=== PATIENT | female | born 1985 | race Caucasian/White ===

== ENCOUNTER 2022-02-13 07:51 | Inpatient (IN) ==
[2022-02-13] MEDS ORDERED: LIDOCAINE 1% LOCAL 20 ML VIAL INFIL PRN (08:03)
[2022-02-13] MEDS ORDERED: OXYTOCIN 30 UNITS/500 ML BAG IV PRN ×3 (08:03→18:50)
--- NOTE | 2022-02-13 08:03 | History & Physical Report ---
Date of Service February 13, 2022 Assessment & Plan (1) Encounter for induction of labor: Plan: Admit to L&D for IOL. Plan for Pitocin and Mclaughlin bulb. Epidural as desired. (2) Preeclampsia: Plan: Will check CBC and CMP. Continue to trend blood pressures. Admission and Anticipated Discharge Date Admission Date: February 13, 2022 History of Present Illness Chief Complaint: IOL Primary Care Provider: Xu Schmidt DO Olivia is a 36 y/o female currently at 37 3/7 WGA with an RICH 03/03/22 as determined by LMP who is here for induction. Her was complicated by preeclampsia. Irregular contractions; + movement; no fluid loss; no bloody show External FHT and external uterine monitors used; Category 1 tracing; moderate FHT variability. Had regular appointments with OB. Labs: (07/25/21) Blood type: O+ Antibody screen: Neg Hg: pending (today) Hct:pending (today) WBC: pending(today) Plt: pending(today) Rubella: Non-immune VDRL/RPR: Neg Gonorrhea: Neg Chlamydia: Neg HIV: Neg HbSAg: Neg GBS: neg Other screens: Declines cf/sma--mln cfdna-low risk--mln Allergies Allergy/AdvReac Type Severity Reaction Status Date / Time No Known Allergies Allergy NONE Verified 02/12/22 13:20 Home Medications Medication Instructions Recorded Confirmed Type prenat.vits,vikki,wfy-qsxu-fvuyb 1 tab PO DAILY 07/17/21 02/13/22 History breast pump #1 ea 11/11/21 02/13/22 Rx Patient History Medical History (Updated 02/13/22 @ 08:31 by Yoana Woodruff DO) Lyme disease (~01/08/16) Surgical History S/P dilation and curettage polypectomy S/P tonsillectomy Family History Mother Breast cancer Hypertension Thyroid disease Social History (Updated 02/05/22 @ 11:21 by Bhavana Andre RN) Smoking Status: Former smoker Cigarettes Per Day: 20; Smoking End Date: 10/2021; Second Hand Exposure: No; Hx Alcohol Use: No Hx Substance Use: No Preferred Language: Latvian Communication Ability: Effective Visual Impairment: No Limitations Hearing Ability: Normal Music Educator Required: No Beliefs That Will Affect Care: None marital status: Single marital status details: Matti(38) [phone] Current Living Situation: Significant Other Current Living Situation Comment: lives with fob, 4 dogs, 3 cats, fob to change litter current occupational status: employed 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 Other Information That Helps Us Care for You: No Feels Safe at Home: Yes Safety Concerns: Feels Safe At This Time Childhood Exposure to Second-Hand Smoke: No Gender Identity: Female Assistive Devices: Contacts Review of Systems Denies fever, chills, sweats Denies shortness of breath, difficulty breathing, chest pain, palpitations, chest pressure. Denies breast pain. Denies dysuria. Denies headache or changes in vision. Physical Exam Physical Exam: General: Alert, oriented. No acute distress. Cardiac: Regular rate and rhythm, no murmurs/rubs/gallops. Respiratory: Clear to auscultation bilaterally a/p, no wheezes/rales/rhonchi. No increased work of breathing. Symmetrical chest rise. No respiratory distress. Abdomen: Gravid, no RUQ tenderness Pelvic: Dilation 1 cm; Effacement 90; Station -[address] Abreu Lower Extremities: No lower extremity edema or swelling. No deep calf pain. Lynne's negative bilaterally Neuro: no clonus, DTRs +2 Supervising Physician Co-Signing Physician Notes Resident Physician Supervision Note: I was present with Dr. Woodruff during the history and exam. I discussed the case with the resident and agree with the findings and plan as documented in the note. Any exceptions or clarifications are listed here: at 37wks with mild preeclampsia for induction. fhts categ 1. sve /-2 soft mid. PROCEDURE: sse cx visualized, grasped on ant lip with ring forcep, mclaughlin through os and balloon inflated with 40cc sterile water. Spec removed, mclaughlin taped to leg. pt adan well. will start pitocin as well. pt agreeable. no significant additional sx, has had on and off adams. plan arom when avail. Documented By: Jenise Abreu MD, FACOG
[2022-02-13 08:39] LABS: Hematocrit (blood only) 33.7 % (34.1-44.9); Hemoglobin 12.2 g/dl (12.0-16.0); Mean Corpuscular Hemoglobin 31.9 pg (25.0-34.0); Mean Corpuscular Hgb Conc 36.2 g/dL (32.0-36.0); Mean Corpuscular Volume 88.2 fL (80.0-100.0); Mean Platelet Volume 10.4 fL (9.4-12.3); Platelet Count 259 K/uL (130-400); RDW Standard Deviation 41.8 fL (36.4-46.3); Red Blood Count 3.82 M/uL (3.93-5.22); White Blood Count 8.62 K/ul (4.8-10.8)
[2022-02-13 09:11] LABS: Alanine Aminotransferase 9 U/L (7-52); Albumin Level 3.1 gm/dl (3.4-5.0); Alkaline Phosphatase 142 U/L (34-104); Anion Gap 7 (3-11); Aspartate Aminotransferase 12 U/L (13-39); BUN Creatinine Ratio 13.2 (10-20); Bilirubin,Total 0.3 mg/dl (0.2-1.0); Blood Urea Nitrogen 9 mg/dl (6-23); Carbon Dioxide 25 mmol/L (21-32); Chloride 103 mmol/L (98-107); Est GFR (African American) 129.5 ml/min; Est GFR (Non-African American) 111.7 ml/min; Globulin 3.1 gm/dl (2.5-4.0); Potassium 3.9 mmol/L (3.5-5.1); Sodium 135 mmol/L (136-145); Total Protein 6.2 gm/dl (6.0-8.3)
[2022-02-13] MEDS: LACTATED RINGER'S 1,000 ML IV PRN ×2 (09:48→14:11)
[2022-02-13 10:12] LABS: Glucose 75 mg/dl (70-99(Fasting))
[2022-02-13] MEDS ORDERED: BUTORPHANOL TARTRATE 1 MG/ML VIAL IV STA (10:35)
--- NOTE | 2022-02-13 13:25 | Labor Progress Brief Note ---
Date of Service February 13, 2022 Subjective feeling pressure in rectum Assessment & Plan (1) Encounter for induction of labor: (2) Preeclampsia: Plan good cx change. labor pattern and pt desires epidural. fhts categ 1. Admission and Anticipated Discharge Date Admission Date: February 13, 2022 Physical Exam 2 Constitutional: WD/WN, vitals as above Genitourinary: Manual OB Exam: + cervical dilation 4 cm, + cervical effacement 90%, + station -1 and + amniotic fluid (arom ) clear OB Exam Monitor Tracing: + external FHT monitor used, + external uterine monitor used (q2 pit at 11), + category I and + normal FHT variability mclaughlin in vagina, deflated and removed. Results & Data ([facility]) Vital Signs (Past 12 Hours) Vital Signs Temp Pulse Resp BP O2 Del Method 02/13/22 08:00 98.1 F 73 18 141/87 H Room Air 02/13/22 12:39 76 02/13/22 12:39 122/72 02/13/22 11:40 64 02/13/22 11:40 140/64 02/13/22 11:32 18 02/13/22 11:32 98.1 F 18 02/13/22 11:32 69 02/13/22 11:32 139/63 02/13/22 10:48 64 02/13/22 10:48 138/69 02/13/22 10:38 67 02/13/22 10:38 146/74 H 02/13/22 07:59 73 141/87 H Coding Level of Care Code None Diagnoses Encounter for induction of labor Z34.90 Preeclampsia O14.90 CPT Codes Misx Procedure Codes - 42774 Placement of cervical dilator: 24054 Placement of cervical dilator ([id number]) DELIVERY DRIVER/CUSTOMER SERVICE Miscellaneous Codes Misx Procedure Codes 58887 Placement of cervical dilator (done earlier and forgot to submit billing)
[2022-02-13] MEDS ORDERED: ePHEDrine sulfate 50 MG/ML AMP ONE (13:32)
[2022-02-13] MEDS ORDERED: fentaNYL citrate 100 MCG/2 ML VIAL ONE ×2 (13:32→17:53)
[2022-02-13] MEDS ORDERED: SODIUM CHLORIDE 0.9% INJ 10 ML VIAL ONE (13:33)
[2022-02-13] MEDS ORDERED: LIDOCAINE 2%/EPINEPHRINE 1:200,000 20 ML SDV ONE ×2 (13:33→14:04)
[2022-02-13] MEDS ORDERED: BUPIVACAINE 0.25% 30 ML VIAL ONE ×2 (13:33→14:02)
[2022-02-13] MEDS ORDERED: fentaNYL 2MCG/ML ROPIVACAINE 1.25MG/ML 100 ML BAG EPI ONE (13:34)
--- NOTE | 2022-02-13 14:29 | Anesthesiology Consultation ---
Date of Service February 13, 2022 Assessment & Plan Chart Review Chart Review: Acceptable Risk for Labor Epidural Consults Requested none History Height/Weight Height: 5 ft 4 in Weight: 92.261 kg Allergies Allergy/AdvReac Type Severity Reaction Status Date / Time No Known Allergies Allergy NONE Verified 02/12/22 13:20 Medications Home Medications Medication Instructions Recorded Confirmed Last Taken prenat.vits,vikki,ggk-oupl-wilbw 1 tab PO DAILY 07/17/21 02/13/22 02/13/22 07:00 breast pump #1 ea 11/11/21 02/13/22 Unknown Active Medications Generic Name Dose Route Start Last Admin Trade Name Freq PRN Reason Stop Dose Admin Oxytocin 30 units in 500 mls @ 11 mls/hr 02/13/22 08:03 02/13/22 13:00 Pitocin IV 02/15/22 08:02 0.66 units/hr .Q24H PRN 11 mls/hr Labor Induction/Augmentation Titration Protocol 0.66 UNITS/HR Lactated Ringer's 1,000 mls @ 125 mls/hr 02/13/22 08:03 02/13/22 14:11 Lr IV 02/15/22 08:02 Infused .Q8H PRN Infusion L&D Protocol Protocol Past Medical History Medical History (Updated 02/13/22 @ 08:31 by Yoana Woodruff DO) Lyme disease (~01/08/16) Past Family History Family History Mother Breast cancer Hypertension Thyroid disease Past Surgical History Surgical History S/P dilation and curettage polypectomy S/P tonsillectomy Social History Smoking Status: Former smoker tobacco type: cigarettes Smoking cigarettes per day: 20 Smoking End Date: 10/2021 Hx Alcohol Use: No Hx Substance Use: No substance use type: does not use Physical Exam Vital Signs Last Vital Signs Temp 36.8 C 02/13/22 13:22 Pulse 79 02/13/22 14:23 Resp 18 02/13/22 11:32 BP 125/66 02/13/22 14:23 Pulse Ox 99 02/13/22 14:23 O2 Del Method 02/13/22 08:00 Testing Laboratory Results 02/13/22 08:26 10/28/22 08:26
[2022-02-13] MEDS ORDERED: ONDANSETRON INJ 2 MG/ML 2 ML VIAL IV PRN (14:30)
[2022-02-13] MEDS ORDERED: diphenhydrAMINE 50 MG/ML VIAL IV PRN (14:30)
[2022-02-13] MEDS ORDERED: NALOXONE HCL 1 MG in SODIUM CHLORIDE 0.9% 1000ML 1,000 ML IV PRN (14:30)
[2022-02-13] MEDS ORDERED: NALBUPHINE HCL INJ 10 MG/ML AMP IV PRN (14:30)
[2022-02-13] MEDS ORDERED: fentaNYL 2MCG/ML ROPIVACAINE 1.25MG/ML 100 ML BAG EPI PRN (14:30)
[2022-02-13] MEDS ORDERED: ePHEDrine sulfate 50 MG/ML AMP IV PRN (14:30)
[2022-02-13] MEDS ORDERED: NALOXONE HCL 0.4 MG/1 ML VIAL/CARP IV PRN (14:30)
--- NOTE | 2022-02-13 18:47 | Delivery Summary ---
Vaginal Delivery Summary Date of Service February 13, 2022 Vaginal Delivery Summary and 2nd Degree LAC The patient dilated to complete and pushed to deliver a viable male infant Apgars 8 and 9 via over 2nd degree perineal laceration. Mouth and nose bulb suctioned at perineum. Shoulders and body delivered with ease. Infant was vigorous and crying at . Cord clamped at 30 seconds of life and infant to maternal abdomen where the cord was then doubly clamped and cut. Placenta delivered spontaneously and intact, three-vessel cord. Hemostasis achieved with dilute pitocin and uterine massage and drainage of the bladder for approximately 200 cc under sterile conditions. Laceration repaired in routine fashion with 3- 0 vicryl. Cervix and sulci intact. EBL 300 cc. Mother and baby stable in recovery. [facility] [place] Vaginal Delivery Charge Delivery Type Details: and 2nd Degree LAC
[2022-02-13] MEDS ORDERED: DIPHTHERIA/TETANUS/PERTUSSIS 0.5 ML SYR/VIAL IM ONE (18:50)
[2022-02-13] MEDS ORDERED: HYDROCORTISONE ACETATE 25 MG SUPP PR PRN (18:50)
[2022-02-13] MEDS ORDERED: ACETAMINOPHEN 325 MG TAB PO PRN (18:50)
[2022-02-13] MEDS ORDERED: BENZOCAINE 20% AER SPR 82.5 GM CAN EXT PRN (18:50)
[2022-02-13] MEDS ORDERED: oxyCODONE/ACETAMINOPHEN 5mg/325mg TAB PO PRN (18:50)
[2022-02-13] MEDS ORDERED: CALCIUM CARBONATE 500 MG CHEWABLE TAB PO PRN (18:57)
[2022-02-13] MEDS ORDERED: OXYTOCIN 20 UNITS in LACTATED RINGER'S 1,000 ML IV SCH (19:15)
[2022-02-13] MEDS ORDERED: MEASLES, MUMPS & RUBELLA VIRUS VIAL SQ ONE (21:00)
[2022-02-14] MEDS: DOCUSATE SODIUM 100 MG CAP PO SCH ×3 (01:49→20:38)
[2022-02-14] MEDS: IBUPROFEN 600 MG TAB PO PRN ×2 (01:50→12:03)
--- NOTE | 2022-02-14 06:04 | Obstetrical Progress Note ---
Date of Service February 14, 2022 Assessment & Plan (1) Vaginal delivery: (2) Preeclampsia: Plan stable, routine care. breast, rh pos, mmr ordered. bps are reasonable. denies any concerning sx. Day #:: 1 Subjective Ambulation: ambulating normally Voiding: no voiding problems Diet Tolerance:: regular diet Lochia:: Small Feeding Type:: breast feeding denies pain issues. trying to get habit of nursing, used breast shield. Constitutional: + as per Subjective / HPI Physical Exam Constitutional WD/WN, vitals as above Respiratory normal respiratory effort, lungs clear to auscultation Cardiovascular Rate/Rhythm: regular rate and regular rhythm Gastrointestinal (Abdomen) Inspection/Auscultation: abdomen normal to inspection Percussion/Palpation: abdomen soft Fundus firm 2cm down Musculoskeletal nt calves Tr edema Neurologic grossly normal Psychiatric A+Ox3, euthymic affect Results & Data ([facility]) Vital Signs (Past 12 Hours) Vital Signs Temp Pulse Pulse Resp BP BP Pulse Ox 02/14/22 02:00 99.1 F 90 18 148/78 H 97 02/13/22 22:00 99.1 F 95 H 18 141/83 H 98 02/13/22 19:40 99.5 F 02/13/22 18:40 98.7 F 02/13/22 21:22 94 H 02/13/22 21:22 149/65 H 02/13/22 21:08 105 H 02/13/22 21:08 170/78 H 02/13/22 20:52 114 H 02/13/22 20:52 146/63 H 02/13/22 20:37 93 H 02/13/22 20:37 141/64 H 02/13/22 20:22 103 H 02/13/22 20:22 139/61 02/13/22 20:07 87 02/13/22 20:07 148/71 H 02/13/22 19:52 80 02/13/22 19:52 154/72 H 02/13/22 19:37 95 H 02/13/22 19:37 152/70 H 02/13/22 19:22 91 H 02/13/22 19:22 164/68 H 02/13/22 19:07 90 02/13/22 19:07 150/70 H 02/13/22 18:52 102 H 02/13/22 18:52 139/76 02/13/22 18:40 94 H 02/13/22 18:40 137/70 02/13/22 18:33 99 02/13/22 18:33 92 H 02/13/22 18:28 87 L 02/13/22 18:28 122 H 02/13/22 18:24 89 L 02/13/22 18:24 114 H 02/13/22 18:23 99 02/13/22 18:23 95 H 02/13/22 18:22 101 H 02/13/22 18:22 141/62 H 02/13/22 18:18 87 L 02/13/22 18:18 104 H 02/13/22 18:13 100 02/13/22 18:13 92 H 02/13/22 18:08 100 02/13/22 18:08 97 H 02/13/22 18:08 139/67 02/13/22 18:03 99 02/13/22 18:03 84 O2 Del Method 02/14/22 02:00 Room Air 02/13/22 22:00 Room Air 02/13/22 19:40 02/13/22 18:40 02/13/22 21:22 02/13/22 21:22 02/13/22 21:08 02/13/22 21:08 02/13/22 20:52 02/13/22 20:52 02/13/22 20:37 02/13/22 20:37 02/13/22 20:22 02/13/22 20:22 02/13/22 20:07 02/13/22 20:07 02/13/22 19:52 02/13/22 19:52 02/13/22 19:37 02/13/22 19:37 02/13/22 19:22 02/13/22 19:22 02/13/22 19:07 02/13/22 19:07 02/13/22 18:52 02/13/22 18:52 02/13/22 18:40 02/13/22 18:40 02/13/22 18:33 02/13/22 18:33 02/13/22 18:28 02/13/22 18:28 02/13/22 18:24 02/13/22 18:24 02/13/22 18:23 02/13/22 18:23 02/13/22 18:22 02/13/22 18:22 02/13/22 18:18 02/13/22 18:18 02/13/22 18:13 02/13/22 18:13 02/13/22 18:08 02/13/22 18:08 02/13/22 18:08 02/13/22 18:03 02/13/22 18:03
[2022-02-14] MEDS: PRENATAL VITAMIN 1 TAB PO SCH (07:48)
--- NOTE | 2022-02-15 08:35 | Obstetrical Progress Note ---
Date of Service February 15, 2022 Assessment & Plan (1) Vaginal delivery: day #1 patient is doing well she is somewhat sleep deprived her blood pressures are borderline they are not at the treatment range yet in my opinion but I will have her back in the office and she was advised to make this appoin tment for this week if she has any other concerns or increasing headache she will contact us sooner otherwise she will be discharged home she has no extremity pain bleeding is minimal Subjective Ambulation: ambulating normally Voiding: no voiding problems Passing Gas:: Yes Diet Tolerance:: regular diet Lochia:: Small Physical Exam Constitutional WD/WN, vitals as above well developed and well nourished Respiratory normal respiratory effort; no respiratory distress, no retractions and does not use accessory muscles Cardiovascular RRR, no murmur, no edema Chest (Breasts) normal inspection/palpation of breasts Breast: normal inspection of breasts, normal inspection of axillae, normal pal pation of breasts and normal palpation of axillae Gastrointestinal (Abdomen) normal bowel sounds, soft, nontender, no hepatosplenomegaly Neurologic awake; not confused Results & Data ([facility]) Vital Signs (Past 12 Hours) Vital Signs Temp Pulse Resp BP Pulse Ox O2 Del Method 02/15/22 00:45 98.1 F 78 18 144/81 H 97 Room Air
[2022-02-15] MEDS: DOCUSATE SODIUM 100 MG CAP PO SCH ×2 (08:49→20:53)
[2022-02-15] MEDS: PRENATAL VITAMIN 1 TAB PO SCH (08:49)
[2022-02-15] MEDS: LABETALOL HCL 200 MG TAB PO SCH ×2 (10:42→20:54)
--- NOTE | 2022-02-15 11:47 | Obstetrical Progress Note ---
Date of Service February 15, 2022 was planned d/c however elevated BP, some of this likely related to baby crying and stress, some related to HTN process. Initiate Labetalol, monitor closely. Very mild H/A. Discussed possibility of Magnesium if worsens. Cancel D/C Assessment & Plan Admission and Anticipated Discharge Date Admission Date: February 13, 2022 Results & Data ([facility]) Vital Signs (Past 12 Hours) Vital Signs Temp Pulse Resp BP Pulse Ox O2 Del Method 02/15/22 00:45 98.1 F 78 18 144/81 H 97 Room Air PG Care Time/CCT Total # of Minutes Spent Total Time Spent with Patient: Total time spent is greater than 50% in coordination of care (as documented) at patient's floor/unit and/or counseling patient: Coding Level of Care Code None
[2022-02-15 15:44] LABS: Hematocrit (blood only) 30.3 % (34.1-44.9); Hemoglobin 10.4 g/dl (12.0-16.0); Mean Corpuscular Hemoglobin 31.7 pg (25.0-34.0); Mean Corpuscular Hgb Conc 34.3 g/dL (32.0-36.0); Mean Corpuscular Volume 92.4 fL (80.0-100.0); Mean Platelet Volume 9.8 fL (9.4-12.3); Platelet Count 229 K/uL (130-400); RDW Coefficient of Variation 13.4 % (11.5-14.5); RDW Standard Deviation 44.8 fL (36.4-46.3); Red Blood Count 3.28 M/uL (3.93-5.22); White Blood Count 11.97 K/ul (4.8-10.8)
[2022-02-15 16:04] LABS: BUN Creatinine Ratio 11.8 (10-20); Bilirubin Direct 0.1 mg/dl (0-0.2); Bilirubin,Total 0.2 mg/dl (0.2-1.0); Calcium 8.5 mg/dl (8.5-10.1); Creatinine Clr Calc Pharmacy 124.7 ml/min; Est GFR (African American) 129.5 ml/min; Est GFR (Non-African American) 111.7 ml/min; Potassium 3.8 mmol/L (3.5-5.1)
[2022-02-15] MEDS: IBUPROFEN 600 MG TAB PO PRN (19:37)
--- NOTE | 2022-02-16 06:18 | Obstetrical Progress Note ---
Date of Service February 16, 2022 Assessment & Plan (1) Vaginal delivery: Plan s/p PPD#3: Vital signs reviewed, BP still elevated (148/75 this morning) O+, GBS negative, Rubella non-immune ( MMR) Encourage ambulation Continue regular diet, treat pain as needed Encourage breast feeding Plan to discharge today on Labetalol Admission and Anticipated Discharge Date Admission Date: February 13, 2022 Supervising Physician Co-Signing Physician Notes Resident Physician Supervision Note: I was present with Dr. Taylor during the history and exam. I discussed the case with the resident and agree with the findings and plan as documented in the note. Any exceptions or clarifications are listed here: [None] Documented By: Tarik Woody MD, FACOG Subjective Olivia is a 36 y/o female who is PPD #3 following delivery at 37 3/7 we eks. Her was complicated by preeclampsia and rubella non-immune status. She has been treated with Labetalol since delivery. She reports feeling well overall this morning. Pain well managed on analgesics. Voiding without issue. Tolerating meals overnight and able to ambulate some. Endorses passing gas. Has some persistent lochia with improvement this morning. Currently breast feeding/pumping. Review of Systems Constitutional: no fever, no chills and no sweats Respiratory: no cough, no dyspnea and no wheezing Cardiovascular: no chest pain, no palpitations and no calf pain Genitourinary: no dysuria Neurologic: Has a slight headache, improved from yesterday Physical Exam Constitutional: WD/WN, vitals as above no acute distress Respiratory: no respiratory distress Auscultation: lungs clear to auscultation bilaterally; no rales, no rhonchi and no wheezes Cardiovascular: RRR, no murmur, no edema Extremities: no calf tenderness and no edema Negative Lynne's sign bilaterally. Gastrointestinal (Abdomen): Inspection/Auscultation: normal bowel sounds Genitourinary: Uterine fundus firm, palpable below the umbilicus. Results & Data ([facility]) Vital Signs (Past 12 Hours) Vital Signs Temp Pulse Resp BP O2 Del Method 02/16/22 05:30 148/75 H 02/16/22 03:34 136/73 02/16/22 01:09 152/79 H 02/15/22 23:00 80 18 144/74 H Room Air 02/15/22 20:50 141/72 H 02/15/22 19:45 36.8 C 73 18 163/73 H Resident Activity Tracking Resident Involvement: Resident Care Provided Care Provided: OB Delivery
[2022-02-16] MEDS: IBUPROFEN 600 MG TAB PO PRN (08:18)
[2022-02-16] MEDS: PRENATAL VITAMIN 1 TAB PO SCH (08:18)
[2022-02-16] MEDS: DOCUSATE SODIUM 100 MG CAP PO SCH (08:18)
[2022-02-16] MEDS: LABETALOL HCL 200 MG TAB PO SCH (08:18)
== END 2022-02-16 10:43 | disposition home or self-care (01) | DRG 807 ==
LOC: 4S1 07:51 → 4E2 22:10

== ENCOUNTER 2024-06-10 22:44 | Inpatient (IN) ==
[2024-06-10] MEDS ORDERED: ACETAMINOPHEN 500 MG TAB PO PRN (22:54)
[2024-06-10] MEDS ORDERED: LIDOCAINE 1% LOCAL 20 ML VIAL INFIL PRN (22:54)
[2024-06-10] MEDS: LACTATED RINGER'S 1,000 ML IV PRN (23:13)
[2024-06-10 23:30] LABS: Hematocrit (blood only) 33.3 % (37.0-47.0); Hemoglobin 11.5 g/dl (12.0-16.0); Mean Corpuscular Hemoglobin 31.2 pg (25.0-34.0); Mean Corpuscular Hgb Conc 34.5 g/dL (32.0-36.0); Mean Corpuscular Volume 90.2 fL (80.0-100.0); Mean Platelet Volume 9.7 fL (9.4-12.4); Platelet Count 283 K/uL (130-400); RDW Coefficient of Variation 13.6 % (11.5-14.5); RDW Standard Deviation 44.6 fL (36.4-46.3); Red Blood Count 3.69 M/uL (4.20-5.40); White Blood Count 15.59 K/ul (4.8-10.8)
[2024-06-10] MEDS ORDERED: BUPIVACAINE 0.25% PF 30 ML VIAL EPI PRN (23:42)
[2024-06-10] MEDS ORDERED: ePHEDrine sulfate 50 MG/ML AMP IV PRN (23:42)
[2024-06-10] MEDS ORDERED: NALOXONE HCL 0.4 MG/1 ML VIAL/CARP IV PRN (23:42)
[2024-06-10] MEDS ORDERED: NALBUPHINE HCL INJ 10 MG/ML AMP IV PRN (23:42)
[2024-06-10] MEDS ORDERED: NALOXONE HCL 1 MG in SODIUM CHLORIDE 0.9% 1,000 ML IV PRN (23:42)
[2024-06-10] MEDS ORDERED: LIDOCAINE 2% MPF LOCAL 5 ML VIAL EPI PRN (23:42)
[2024-06-10] MEDS ORDERED: ROPIVACAINE 0.5% PF 5 MG/ML 20 ML VIAL EPI PRN (23:42)
[2024-06-10] MEDS ORDERED: fentaNYL citrate PF 100 MCG/2 ML VIAL EPI PRN (23:42)
[2024-06-10] MEDS ORDERED: SODIUM CHLORIDE 0.9% PF INJ 10 ML VIAL EPI PRN (23:42)
[2024-06-10] MEDS ORDERED: fentANYL 2 MCG/ML BUPIVacaine 0.125%-NSS 100ML BAG EPI PRN (23:42)
[2024-06-10] MEDS ORDERED: diphenhydrAMINE 50 MG/ML VIAL IV PRN (23:42)
[2024-06-10] MEDS ORDERED: ONDANSETRON INJ 2 MG/ML 2 ML VIAL IV PRN (23:42)
--- NOTE | 2024-06-10 23:44 | Anesthesiology Consultation ---
Date of Service June 10, 2024 Assessment & Plan (1) Encounter for pre-operative examination: Chart Review Chart Review: Patient NOT seen in Pre Admission Testing and Acceptable Risk for Labor Epidural Consults Requested none History Height/Weight Height: 5 ft 4 in Weight: 92.533 kg Allergies Allergy/AdvReac Type Severity Reaction Status Date / Time No Known Allergies Allergy NONE Verified 06/10/24 22:51 Medications Home Medications Medication Instructions Recorded Confirmed Last Taken prenat.vits,vikki,yte-rzab-luyfo 1 tab PO DAILY 07/17/21 06/09/24 06/10/24 Active Medications Generic Name Dose Route Start Last Admin Trade Name Freq PRN Reason Stop Dose Admin Lactated Ringer's 1,000 mls @ 125 mls/hr 06/10/24 22:54 06/10/24 23:45 Lr IV 06/11/24 22:53 125 mls/hr .Q8H PRN Infusion L&D Protocol Protocol Past Medical History Medical History (Updated 06/10/24 @ 23:44 by Buck Buckner MD) Encounter for pre-operative examination Varicella vaccination Ectopic Mild pre-eclampsia Lyme disease (~01/08/16) Thumb fracture Ankle contusion Exercise / Class Metabolic Activity II 4-5 Yardwork/Stairs/Walk up hill Past Family History Family History Mother Breast cancer Hypertension Thyroid disease Denies family history of Ovarian cancer Colorectal cancer Past Surgical History Surgical History S/P dilation and curettage polypectomy S/P tonsillectomy Past Anesthesia History No Hx of Anesthesia Complications and No Family Hx of Anesthesia Complications History of PONV No Hx of PONV and No Hx of Motion Sickness Social History Smoking Status: Current every day smoker tobacco type: cigarettes Smoking cigarettes per day: 10 Do You Dip or Chew Tobacco: No Hx Alcohol Use: No Hx Substance Use: No substance use type: does not use Physical Exam Vital Signs Last Vital Signs Temp 36.6 C 06/10/24 22:51 Pulse 99 H 06/11/24 00:01 Resp 18 06/10/24 22:51 BP 144/81 H 06/11/24 00:01 Pulse Ox 100 06/11/24 00:01 Testing Laboratory Results 06/10/24 23:09
[2024-06-11] MEDS: fentANYL 2 MCG/ML BUPIVacaine 0.125%-NSS 100ML BAG ONE (00:08)
[2024-06-11] MEDS: BUPIVACAINE 0.25% PF 30 ML VIAL ONE (00:09)
[2024-06-11] MEDS: LIDOCAINE 2%/EPINEPHRINE 1:200,000 20 ML PF ONE (00:09)
[2024-06-11] MEDS: fentaNYL citrate PF 100 MCG/2 ML VIAL ONE (01:28)
[2024-06-11] MEDS: SODIUM CHLORIDE 0.9% PF INJ 10 ML VIAL ONE (03:47)
[2024-06-11] MEDS: ePHEDrine sulfate 50 MG/ML AMP ONE (03:47)
[2024-06-11] MEDS: CALCIUM CARBONATE 500 MG CHEWABLE TAB PO PRN (03:50)
[2024-06-11] MEDS: OXYTOCIN 30 UNITS/NSS 30 UNITS/500 ML BAG IV PRN (06:14)
[2024-06-11] MEDS: miSOPROStoL 200 MCG TAB PR ONE (06:18)
[2024-06-11] MEDS ORDERED: BENZOCAINE 20% SPRY 85 APPLN/85 GM CAN EXT PRN (06:22)
[2024-06-11] MEDS ORDERED: OXYTOCIN 30 UNITS/NSS 30 UNITS/500 ML BAG IV PRN (06:22)
[2024-06-11] MEDS ORDERED: HYDROCORTISONE ACETATE 25 MG SUPP PR PRN (06:22)
[2024-06-11] MEDS: ACETAMINOPHEN 325 MG TAB PO PRN (07:18)
[2024-06-11] MEDS: BUPIVACAINE 0.25% PF 30 ML VIAL EPI STA (07:29)
[2024-06-11] MEDS: fentaNYL citrate PF 100 MCG/2 ML VIAL EPI STA (07:29)
[2024-06-11] MEDS: LIDOCAINE 2%/EPINEPHRINE 1:200,000 20 ML PF EPI STA (07:29)
[2024-06-11] MEDS: SODIUM CHLORIDE 0.9% PF INJ 10 ML VIAL EPI STA (07:29)
[2024-06-11] MEDS: PRENATAL VITAMIN 1 TAB PO SCH (07:39)
[2024-06-11] MEDS: DOCUSATE SODIUM 100 MG CAP PO SCH (07:39)
[2024-06-11] MEDS: FERROUS SULFATE 325 MG TAB PO SCH (07:39)
--- NOTE | 2024-06-11 08:24 | Anesthesia Procedure Note ---
Date of Service June 11, 2024 Anesthesia Post Epidural Note Vital Signs Vital Signs: Temp Pulse Resp BP Pulse Ox 37.3 C 114 H 20 124/65 92 06/11/24 07:52 06/11/24 08:18 06/11/24 07:52 06/11/24 08:18 06/11/24 06:17 Pain Intensity Perineal: Pain Intensity: 1 Notes Mental Status: alert / awake / arousable and participated in evaluation Nausea / Vomiting: adequately controlled Pain: adequately controlled Airway Patency, RR, SpO2: stable & adequate BP & HR: stable & adequate Hydration State: stable & adequate Neuraxial Anesthesia: was administered and sensory block is resolving Anesthetic Complications: no major complications apparent Epidural: Removed without complications and With tip intact
--- NOTE | 2024-06-11 09:38 | History & Physical Report ---
Date of Service June 10, 2024 Assessment & Plan (1) Normal labor and delivery: Plan: Olivia is a 38-year-old G3, P1 currently at 39 weeks 3 days gestational age presents in labor. 1. Fetus: Category 1 tracing. 2. Labor: Appears to be in labor and will augment as needed. 3. GBS negative 4. Vitals within normal limits (2) Supervision of elderly multigravida, antepartum: (3) History of pre-eclampsia in prior , currently : History of Present Illness Primary Care Provider: Xu Schmidt DO Olivia is a 38-year-old G3, P1 currently at 39 weeks 3 days gestational age presents in labor. Reporting regular painful contractions. Denies vaginal bleeding or leakage of fluid. and Delivery Plans AMA (35-40) *Weekly NST's @36 wks Hx of Pre-Eclampsia--induced *was on antihypertensives for 2 months pp *baseline 24 urine 121mg. *baby ASA daily Current daily smoker - 1/2ppd Hx of ectopic (2022) Rubella Non Immune *PPX MMR Hepatitis B Non Immune *Recommend Hep B vaccine Low-Lying Placenta -RESOLVED 04/21/24 KBB - 32w US Allergies Allergy/AdvReac Type Severity Reaction Status Date / Time No Known Allergies Allergy NONE Verified 06/10/24 22:51 Home Medications Medication Instructions Recorded Confirmed Type prenat.vits,vikki,lmk-tdcq-vglcs 1 tab PO DAILY 07/17/21 06/09/24 History Patient History Medical History (Updated 06/11/24 @ 09:37 by Gm Denise MD) Encounter for pre-operative examination Varicella vaccination Ectopic Mild pre-eclampsia Lyme disease (~01/08/16) Thumb fracture Ankle contusion Surgical History S/P dilation and curettage polypectomy S/P tonsillectomy Family History Mother Breast cancer Hypertension Thyroid disease Denies family history of Ovarian cancer Colorectal cancer Social History Smoking Status: Current every day smoker Tobacco Type: Cigarettes packs per day: 0.5; Cigarettes Per Day: 10; Second Hand Exposure: Yes; Do You Dip or Chew Tobacco: No; Tobacco Cessation Education Requested by Patient: No Hx Alcohol Use: No Hx Substance Use: No Preferred Language: Latvian Communication Ability: Effective Visual Impairment: No Limitations Hearing Ability: Normal Manufacturing Electrician Required: No Beliefs That Will Affect Care: None marital status: Single marital status details: Matti (41) [phone] Current Living Situation: Significant Other Current Living Situation Comment: lives with fob and 2 children, 3 dogs, 3 cats, fob changing litter current occupational status: employed current occupation: Working at [employer] in [place] How many Children do You have: 1 Other Information That Helps Us Care for You: No Feels Safe at Home: Yes Safety Concerns: Feels Safe At This Time Childhood Exposure to Second-Hand Smoke: No Diet: regular Gender Identity: Female Assistive Devices: None Physical Exam Genitourinary: OB Exam Monitor Tracing: + external FHT monitor used, + external uterine monitor used, + category I and + normal FHT variability 3 to 4 cm dilated per nurse exam Coding Level of Care Code None Diagnoses Normal labor and delivery O80 Supervision of elderly multigravida, antepartum O09.529 History of pre-eclampsia in prior , currently O09.299
--- NOTE | 2024-06-11 09:40 | Delivery Summary ---
Vaginal Delivery Summary Date of Service June 11, 2024 Vaginal Delivery Summary and 2nd Degree LAC Progressed to 10 cm dilated, 100% effaced +2 station pushed over intact perineum with epidural anesthesia and delivered a viable with weight and Apgars pending. Head of the delivered without difficulty quickly followed by shoulders and body. was noted be vigorous soon after delivery and a 1 minute delayed cord clamping was initiated. Cord blood obtained and attention turned delivery of placenta was delivered intact three-vessel cord gentle cord traction. Inspection of the vagina perineum and cervix there is noted to be a second-degree perineal laceration which was pared with 3-0 Vicryl traditional crown stitch. Needle sponge and instrument counts were correct at the completion of the case. Both mother and stable in the immediate post delivery timeframe. No complications noted and blood loss per QBL and chart. [facility] [place] Delivery Charge Delivery Type Details: and 2nd Degree LAC
[2024-06-11] MEDS: IBUPROFEN 600 MG TAB PO PRN (12:31)
[2024-06-11] MEDS: DIPHTHER/TETAN/PERTUS Vaccine (Tdap, Adol/Adult) 0.5mL IM ONE (12:53)
--- NOTE | 2024-06-12 07:10 | Obstetrical Progress Note ---
Date of Service <Luis E Raman MD - Last Filed: 06/12/24 07:39> June 12, 2024 Assessment & Plan <Luis E Raman MD - Last Filed: 06/12/24 07:39> (1) care and examination: PPD#1 s/p at 38 wga. Stable. Rh+, GBS neg, rubella non immune, vitals wnl Continue routine care, ambulation, diet as tolerated Plan for DC later today <Gm Denise MD - Last Filed: 06/12/24 07:49> (1) care and examination: Subjective <Luis E Raman MD - Last Filed: 06/12/24 07:39> Olivia is a 38yo who is PPD#1 following at 38 wga. Abd pain/cramping - mild, well managed on tylenol Voiding w/o issue Tolerating meals Ambulating normally Passing gas, +BM Lochia - minimal, diminishing Planning to breastfeed. Constitutional: no fever, no chills or no sweats Respiratory: no dyspnea Cardiovascular: no chest pain, no palpitations or no calf pain Breast: no breast pain Gastrointestinal: no nausea or no vomiting Genitourinary (female): no dysuria Neurologic: no headache(s) no changes in vision, no headaches Physical Exam <Luis E Raman MD - Last Filed: 06/12/24 07:39> General: Alert, oriented. No acute distress. Cardiac: Regular rate and rhythm, no murmurs, rubs, or gallops. Respiratory: Clear to auscultation bilaterally. No increased work of breathing. Symmetrical chest rise. No respiratory distress. Abdomen: Soft, nontender, nondistended. Bowel sounds present. Uterus: Uterine fundus firm, nontender, palpable 1 cm below the umbilicus. Lower extremities: No lower extremity edema or swelling. No deep calf pain. Results & Data <Luis E Raman MD - Last Filed: 06/12/24 07:39> Vital Signs (Past 12 Hours) Vital Signs Temp Pulse Resp BP Pulse Ox O2 Del Method 06/12/24 03:45 36.7 C 86 18 127/75 98 Room Air 06/12/24 00:15 36.6 C 84 16 116/70 98 Room Air Supervising Physician <Gm Denise MD - Last Filed: 06/12/24 07:49> Co-Signing Physician Notes Patient seen with resident and agree with the above findings and plan. Requesting discharge and stable for discharge per preference. Resident Activity Tracking <Luis E Raman MD - Last Filed: 06/12/24 07:39> Resident Involvement: Resident Care Provided Care Provided: Adult Hospital Medicine
[2024-06-12 08:12] VITALS: BP 119/73; PULSE 88; RESP 16; TEMP 97.7; O2SAT 99
[2024-06-12] MEDS ORDERED: bisacodyL 5 MG TABEC PO SCH (20:00)
[2024-06-13] MEDS ORDERED: bisacodyL 10 MG SUPP PR PRN
== END 2024-06-12 09:30 | disposition home or self-care (01) | DRG 807 ==
LOC: OPB 22:44 → 4S1 22:46 → 4E2 06-11 09:26